=== PATIENT | male | born 1945 | race Caucasian/White ===

== ENCOUNTER 2017-12-27 14:55 | Outpatient (CLI) | payer OTHER | END 2017-12-27 15:10 | disposition home or self-care (01) | LOC: LAB 14:55 | DX: C18.7 Malignant neoplasm of sigmoid colon (principal); Z86.010 Personal history of colon polyps; Z85.038 Personal history of other malignant neoplasm of large intestine; K92.1 Melena ==

== ENCOUNTER 2018-01-07 07:28 | Day surgery (SDC) | payer OTHER | END 2018-01-07 14:40 | disposition home or self-care (01) | LOC: AMB-ENDOS 07:28 | DX: C19 Malignant neoplasm of rectosigmoid junction (principal); K64.1 Second degree hemorrhoids; Z85.038 Personal history of other malignant neoplasm of large intestine; Z86.010 Personal history of colon polyps ==

== ENCOUNTER 2020-05-10 09:35 | Day surgery (SDC) | payer OTHER | END 2020-05-10 18:25 | disposition home or self-care (01) | LOC: AMB-ENDOS 09:35 | PROVIDERS: ATTEND Colon & Rectal Surgery | DX: K63.5 Polyp of colon (principal); K64.1 Second degree hemorrhoids ==